=== PATIENT | female | born 1985 | race Caucasian/White ===

== ENCOUNTER → 2016-10-11 | Outpatient (CLI) | payer BC ==
[~2016-10-11] MED LIST: ALLDSR60 PO
--- NOTE | 2016-10-11 12:46 | MAMMOGRAPHY REPORT ---
UNILATERAL LEFT DIGITAL DIAGNOSTIC MAMMOGRAM TOMOSYNTHESIS WITH CAD AND TARGETED LEFT ULTRASOUND: 04/2017 CLINICAL HISTORY: 31 year-old woman who presents for diagnostic assessment in the left breast. Her physician felt a lump in the lower outer quadrant of the left breast on physical exam. Patient repo rts no skin erythema or nipple discharge. Family history of breast cancer = great-grandmother. TECHNIQUE: Left CC and MLO 2-D digital and tomosynthesis images were obtained. Current study was a lso evaluated with a Computer Aided Detection (CAD) system. COMPARISON: No prior exams were available for comparison. BREAST COMPOSITION: The tissue of the left breast is extremely dense, which lowers the sensitivity of mammography. FINDINGS: A triangle skin palpable marker overlies the 4:00 to 5:00 left breast, denoting the area o f palpable concern pointed out by the patient. No suspicious mass, focal area of architectural dist ortion or suspicious microcalcifications are identified in the left breast. Real-time high-resolution ultrasound was performed throughout the lower outer quadrant of the left b reast but also including the 7:00 and 8:00 axes to cover the area of palpable concern identified by the patient's physician. The patient was unable to pinpoint the exact location of the lump reported nodularity in the approximate 5:00 left breast. Throughout the area evaluated, normal dense fibrol andular tissue is seen without a discrete solid or cystic mass. IMPRESSION: ACR BI-RADS CATEGORY 2: BENIGN, TARGETED ULTRASOUND ACR BI-RADS CATEGORY 2: BENIGN There is no mammographic or targeted sonographic evidence of malignancy. No suspicious mammographic or sonographic abnormality is seen to correlate with the nodularity identified by the patient's phy sician. Therefore, clinical follow-up is recommended, as biopsy of a clinically suspicious mass jose uld not be precluded by negative imaging. Otherwise, recommend annual screening mammography, once a ge-appropriate. The patient has been verbally notified of the results. Approximately 10% of breast cancers are not detected with mammography. A negative mammographic repor t should not delay biopsy if a clinically suggestive mass is present. Katie Tovar M.D. ay/:10/11/2016 12:37:32 [employer] Librarian: Renay HERNANDEZ)(Marlen), [facility] letter sent: Normal 1/2 BI-RADS Code: ACR BI-RADS Category 2: Benign Ultrasound BI-RADS: ACR BI-RADS Category 2: Benign
== END | disposition home or self-care (01) ==
LOC: C.MAMM 10:06
PROVIDERS: ATTEND Obstetrics & Gynecology
DX: N63 Unspecified lump in breast (principal); Z80.3 Family history of malignant neoplasm of breast